=== PATIENT | male | born 1980 | race Caucasian/White ===

== ENCOUNTER 2023-01-06 07:45 | Emergency (ER) | payer BC ==
[~2023-01-06] VITALS: Ht 172.7 cm; Wt 68.0 kg
[2023-01-06 07:46] VITALS: BP 126/49; PULSE 65; RESP 18; TEMP 97.8; O2SAT 98
--- NOTE | 2023-01-06 08:08 | NUR ---
EVALUATING THE PT.
[2023-01-06] MEDS ORDERED: ACETAMINOPHEN EXTRA STRENGTH 500 MG TAB PO ONE (08:20)
[2023-01-06] MEDS ORDERED: KETOROLAC 30 MG/ML VIAL IM ONE (08:20)
[2023-01-06] MEDS ORDERED: ACET-10509 PO (08:23)
[2023-01-06] MEDS ORDERED: IBUP-2213 PO (08:23)
--- NOTE | 2023-01-06 08:28 | NUR ---
INFORMED THE PT THAT HE IS GOING TO GIVE HIM A MEDICATION FOR PAIN.
--- NOTE | 2023-01-06 08:33 | NUR ---
R ARM SPLINT APPLIED BY EMT.
--- NOTE | 2023-01-06 08:46 | NUR ---
MEDICATED PT ORDERED.
[2023-01-06 09:00] VITALS: BP 126/49; PULSE 65; RESP 18; TEMP 97.8; O2SAT 98
--- NOTE | 2023-01-06 09:00 | NUR ---
Patient discharged with v/s stable. R arm splint in place with good capillary refill of all digits. Written and verbal after care instructions given and explained. Patient alert, oriented and verbalized understanding of instructions. Ambulatory with steady gait. All questions addressed prior to discharge. ID band removed. Patient advised to follow up with PMD. Rx of TYLENOL AND IBUPROFEN given. Patient educated on indication of medication including possible reaction and side effects. Opportunity to ask questions provided and answered. Pt instructed to return if condition worsens.
== END 2023-01-06 09:00 | disposition home or self-care (01) ==
LOC: MED 07:45
DX: G56.01 Carpal tunnel syndrome, right upper limb (principal); M25.531 Pain in right wrist; Z79.899 Other long term (current) drug therapy
CPT/HCPCS: 29125; 96372; 99283; J1885